=== PATIENT | male | born 1985 | race Caucasian/White ===

== ENCOUNTER 2017-06-19 20:07 | Emergency (ER) | payer SELFPAY ==
[2017-06-19 20:50] VITALS: BP 128/78; PULSE 60; RESP 20; TEMP 97.6; O2SAT 100
[2017-06-19] MEDS ORDERED: Neomycin/Polymyxin/Hydrocort Otic Soln BOTTLE AS STA (21:08)
--- NOTE | 2017-06-19 21:56 | C.PDOC ---
History Of Present Illness 31 year old male presents to the ED for evaluation of left ear pain which began earlier today. Patient states he felt something itching in his left ear and decided to use a pen to scratch inside. Patient denies ear discharge or change in hearing. Chief Complaint (Nursing): ENT Problem History Per: Patient History/Exam Limitations: None Onset/Duration Of Symptoms: Hrs Current Symptoms Are (Timing): Still Present Quality (Ear): Pain W/Touch Past Medical History Reviewed: Historical Data, Nursing Documentation, Vital Signs Vital Signs: Last Vital Signs Temp 97.6 F 06/19/17 20:47 Pulse 60 06/19/17 20:47 Resp 20 06/19/17 22:26 BP 128/78 06/19/17 20:47 Pulse Ox 100 06/19/17 23:16 - Medical History PMH: No Chronic Diseases Surgical History: No Surg Hx Family History: States: Unknown Family Hx - Social History Hx Tobacco Use: Yes Hx Alcohol Use: Yes Hx Substance Use: No - Immunization History Hx Tetanus Toxoid Vaccination: No Hx Influenza Vaccination: No Hx Pneumococcal Vaccination: No Review Of Systems ENT: Positive for: Ear Pain (left). Negative for: Ear Discharge, Other (change in hearing in left ear ) Physical Exam - Physical Exam Appears: Non-toxic, No Acute Distress Skin: Normal Color, Warm, Dry Eye(s): bilateral: Normal Inspection Ear(s): Left: Other (mild swelling to canal. abrasion noted ), Right: Normal Neurological/Psych: Normal Speech, Normal Cognition Gait: Steady ED Course And Treatment O2 Sat by Pulse Oximetry: 100 (on RA) Pulse Ox Interpretation: Normal Progress Note: Amoxicillin PO, Cortisporin and Ultram PO administered. Patient refuses motrin at this time. On reassessment, patient is resting comfortably, showing no signs of distress and reports an improvement in his symptoms. Patient is stable for dicharge. Advised to f/u with PMD within 1-2 days for further evaluation. Reassessment Condition: Improved Disposition - Disposition Disposition: HOME/ ROUTINE Disposition Time: 21:43 Condition: STABLE Additional Instructions: Follow up with PMD within 1-2 days. Return to Ed if feel worse. Prescriptions: Amoxicillin 500 mg PO Q8 #30 tab Neomycin/Polymyxin/Hydrocortis [Cortisporin Otic Susp] 3 drop TOP QID #1 bottle Instructions: Otitis Externa (ED) Forms: [facility] (Cuban) - Clinical Impression Clinical Impression: Ear canal abrasion - PA / STOCK TAKER / Resident Statement MD/DO has reviewed & agrees with the documentation as recorded. - Scribe Statement The provider has reviewed the documentation as recorded by the Scribe (Sandie Arthur) All medical record entries made by the Scribe were at my direction and personally dictated by me. I have reviewed the chart and agree that the record accurately reflects my personal performance of the history, physical exam, medical decision making, and the department course for this patient. I have also personally directed, reviewed, and agree with the discharge instructions and disposition.
== END 2017-06-19 22:00 | disposition home or self-care (01) ==
LOC: C.ER 20:07
DX: S00.412A Abrasion of left ear, initial encounter (principal); X58.XXXA Exposure to other specified factors, initial encounter